=== PATIENT | male | born 1980 | race Caucasian/White ===

== ENCOUNTER 2024-01-20 17:00 | Emergency (ER) | payer BC ==
[~2024-01-20] VITALS: Ht 182.9 cm; Wt 90.7 kg
[2024-01-20 17:00] VITALS: BP 129/74; PULSE 84; RESP 18; TEMP 98.5; O2SAT 95
[2024-01-20 17:38] VITALS: BP 133/84; PULSE 85; RESP 18; TEMP 98.5; O2SAT 95
== END 2024-01-20 17:37 | disposition home or self-care (01) ==
LOC: ER 17:00
DX: S52.125A Nondisplaced fracture of head of left radius, initial encounter for closed fracture (principal); Z88.0 Allergy status to penicillin; W19.XXXA Unspecified fall, initial encounter; Y93.89 Activity, other specified; Y92.89 Other specified places as the place of occurrence of the external cause; Y99.8 Other external cause status
CPT/HCPCS: 29125; 99283; 73070-LT; 73110-LT